=== PATIENT | male | born 1980 | race Caucasian/White ===

== ENCOUNTER 2023-09-24 08:11 | Emergency (ER) | payer SELFPAY ==
[~2023-09-24] VITALS: Ht 175.3 cm; Wt 85.0 kg
[2023-09-24 08:20] VITALS: BP 123/75; PULSE 76; RESP 16; TEMP 98.5; O2SAT 100
[2023-09-24 08:48] LABS: BASOPHILS % 0.6 % (0.0-2.0); EOSINOPHILS % 1.3 % (0.0-5.0); HEMATOCRIT. 47.5 % (42.0-52.0); HEMOGLOBIN. 15.7 g/dL (14.0-18.0); LYMPHOCYTES % 39.3 % (20.0-50.0); MEAN CORPUSCULAR HGB CONC 33.1 g/dL (31.0-37.0); MEAN CORPUSCULAR VOLUME 81.7 fL (80.0-94.0); MONOCYTES % 8.4 % (2.0-8.0); NEUTROPHILS % 50.4 % (40.0-76.0); PLATELET 191 x1000/uL (130-400); RED BLOOD CELL COUNT 5.81 mill/uL (4.7-6.1); RED CELL DISTRIBUTION WIDTH 14.6 % (11.6-14.6); WHITE BLOOD COUNT 5.5 x1000/uL (4.5-11.0)
[2023-09-24 09:09] LABS: CARBON DIOXIDE 28 mEq/L (21-32); CHLORIDE 105 mEq/L (98-107); POTASSIUM 4.3 mEq/L (3.5-5.1); SODIUM 141 mEq/L (136-145)
[2023-09-24 09:14] LABS: GLUCOSE 111 mg/dL (70-105)
[2023-09-24 09:15] LABS: UREA NITROGEN BLOOD 14 mg/dL (9-23)
[2023-09-24 09:16] LABS: ALANINE AMINOTRANSFERASE 39 IU/L (10-49); ASPARTATE AMINOTRANSFERASE 21 IU/L (<34)
[2023-09-24 09:17] LABS: BILIRUBIN DIRECT 0.1 mg/dL (<=3.0); BILIRUBIN TOTAL 0.4 mg/dL (0.1-1.0); PROTEIN TOTAL 7.3 g/dL (6.0-8.3)
[2023-09-24] MEDS ORDERED: FAMO-135 MT (10:40)
[2023-09-24] MEDS ORDERED: DICY-18 MT (10:40)
== END 2023-09-24 11:04 | disposition home or self-care (01) ==
LOC: ER 08:11
DX: R10.13 Epigastric pain (principal); Z68.27 Body mass index [BMI] 27.0-27.9, adult
CPT/HCPCS: 36415; 76705; 80048; 80076; 85025; 99284